=== PATIENT | female | born 1975 | race Caucasian/White ===

== ENCOUNTER 2022-03-15 11:45 | Emergency (ER) | payer OTHER, BC, SELFPAY ==
[2022-03-15] VITALS (10 sets, daily range): BP systolic 136–160; BP diastolic 85–98; PULSE 74; RESP 18; TEMP 36.6; O2SAT 97–100
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
[2022-03-15] MEDS: KETOROLAC 30 MG/ML VIAL (*BKC) IM (14:00)
== END 2022-03-15 14:10 | disposition home or self-care (01) ==
PROVIDERS: Emergency Provider Emergency Medicine
DX: S16.1XXA Strain of muscle, fascia and tendon at neck level, initial encounter (principal); V49.40XA Driver injured in collision with unspecified motor vehicles in traffic accident, initial encounter; M47.812 Spondylosis without myelopathy or radiculopathy, cervical region; M47.814 Spondylosis without myelopathy or radiculopathy, thoracic region
CPT/HCPCS: 72125; 72128; 96372; 99284; J1885

== ENCOUNTER 2022-04-03 18:58 | Emergency (ER) | payer BC, OTHER, SELFPAY ==
--- NOTE | ~2022-04-03 | XR_ITS ---
EXAMINATION: XR chest 2V DATE: 04/03/2022 19:22 INDICATION: Chest pain TECHNIQUE: PA and lateral views of the chest were obtained. COMPARISON: None FINDINGS: Mild left basilar atelectasis/scarring. No other airspace opacities, pulmonary edema, pleural effusio n or pneumothorax. Cardiomediastinal silhouette is normal. 25 degrees upper thoracic levoscoliosis an d 30 degrees mid to lower thoracic dextroscoliosis with severe spondylosis. IMPRESSION: 1. Mild left basilar atelectasis/scarring. No acute cardiopulmonary disease. 2. Moderate S-shaped thoracic scoliosis with severe spondylosis. Reviewed, dictated and finalized at location A.
--- NOTE | 2022-04-03 18:59 | ECG_ITS ---
Measurements Intervals [place] Rate: 87 P: 45 CA: 140 QRS: 2 QRSD: 86 T: 8 QT: 335 QTc: 405 Interpretive Statements SINUS RHYTHM BORDERLINE T WAVE ABNORMALITY- INFERIOR LEADS BORDERLINE ECG NO PREVIOUS ECG AVAILABLE FOR COMPARISON Electronically Signed On 04-03-2022 21:13:54 CDT by Markell Walton D.O.
[2022-04-03 19:00] VITALS: BP 178/106; PULSE 95; RESP 18; TEMP 36.5; O2SAT 100
[2022-04-03 19:09] VITALS: BP 155/90
[2022-04-03 19:26] LABS: Basophils Percent Auto 0.3 % (0.2-1.2); Eosinophils Percent Auto 0.2 % (0-4.4); Hematocrit 39.8 % (37.0-47.0); Hemoglobin 12.7 g/dL (12.0-15.0); Immature Granulocyte Absolute 0.06 K/mm3 (0.00-0.031); Immature Granulocyte Percent A 0.5 % (0-0.5); Lymphocytes Absolute Auto 1.19 K/mm3 (0.9-3.2); Mean Corpuscular HGB Conc 31.9 g/dl (32-36); Mean Corpuscular Hemoglobin 29.3 pg (26-34); Mean Corpuscular Volume 91.7 fl (80-100); Mean Platelet Volume 9.7 fl (7.4-10.4); Monocytes Absolute Auto 0.7 K/mm3 (0.1-0.6); Monocytes Percent Auto 5.4 % (2.6-8.5); Neutrophils Absolute Auto 11.2 K/mm3 (1.3-6.7); Neutrophils Percent Auto 84.6 % (45.5-73.1); Platelet Count Result 244 k/mm3 (150-375); Red Blood Count 4.34 M/mm3 (4.2-5.4); Red Cell Distribution Width 13.3 % (11.5-14.5); White Blood Count 13.2 K/mm3 (4.5-10.0)
[2022-04-03 19:41] LABS: Alanine Aminotransferase 25 U/L (6-35); Albumin Level 4.7 g/dL (3.5-5.1); Alkaline Phosphatase 54 U/L (38-126); Anion Gap 11 mmol/L (8-16); Aspartate Amino Transferase 28 U/L (14-36); Bilirubin,Total 0.3 mg/dL (0.2-1.3); Blood Urea Nitrogen 21 mg/dL (7-17); Calcium 9.6 mg/dL (8.4-10.2); Carbon Dioxide 21 mmol/L (22-30); Chloride 108 mmol/L (98-107); Estimated CRCL calculation 95 ml/min; Estimated Glomerular Filt Rate > 60; Glucose 105 mg/dL (65-110); Lipase 121 U/L (23-300); Potassium 4.1 mmol/L (3.4-5.0); Sodium 140 mmol/L (137-145)
[2022-04-03 19:42] LABS: Prothrombin Time 12.9 Seconds (11.1-14.7)
[2022-04-03 19:43] LABS: Partial Thromboplastin Time 32.1 SECONDS (22.3-36.8)
[2022-04-03 19:53] LABS: Troponin I < 0.012 ng/mL (0.000-0.034)
[2022-04-03] MEDS: KETOROLAC 30 MG/ML VIAL (*BKC) IV PUSH (21:41)
[2022-04-03 22:32] LABS: Troponin I < 0.012 ng/mL (0.000-0.034)
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
[2022-04-03 23:45] VITALS: BP 137/78; PULSE 77; RESP 14; O2SAT 100
[2022-04-03 23:49] VITALS: PULSE 82
== END 2022-04-03 23:51 | disposition home or self-care (01) ==
PROVIDERS: Emergency Medicine; Emergency Provider Emergency Medicine
DX: R07.9 Chest pain, unspecified (principal); R94.31 Abnormal electrocardiogram [ECG] [EKG]; M47.814 Spondylosis without myelopathy or radiculopathy, thoracic region
CPT/HCPCS: 36415; 71046; 80053; 83690; 84484; 85025; 85610; 85730; 93005; 96374; 99284; J1885

== ENCOUNTER 2023-04-28 16:50 | Emergency (ER) | payer BC, SELFPAY ==
--- NOTE | ~2023-04-28 | US_ITS ---
EXAMINATION: US venous doppler LE RT DATE: 04/28/2023 17:53 INDICATION: Right lower limb pain. TECHNIQUE: Grayscale ultrasound images without and with compression and Doppler ultrasound images of the right lower extremity veins were obtained. COMPARISON: None. FINDINGS: The visualized portions of right common femoral vein, profunda (deep) femoral vein, femoral vein, pop liteal vein, peroneal veins, posterior tibial veins, and greater saphenous vein outflow are patent. IMPRESSION: 1. No deep venous thrombosis. Reviewed, dictated and finalized at location E.
[2023-04-28 16:52] VITALS: BP 145/82; PULSE 81; RESP 17; TEMP 36.8; O2SAT 100
--- NOTE | 2023-04-28 17:52 | ED.LOWEXIN ---
HPI - Extremity Injury (Lower) General Chief Complaint: Extremity Injury, Lower Stated Complaint: right calf pain Time Seen by Provider: 04/28/23 17:11 Source: patient Mode of arrival: ambulatory Limitations: no limitations History of Present Illness HPI Narrative: Patient is a 47 y/o female who presents to the ED with c/o R lower extremity pain. Patient reports she developed pain in her right calf and posterior knee last night around 10 PM. She states pain was present mostly throughout the night. She describes it as a constant aching. She tried taking ibuprofen without much improvement. Patient notes a history of superficial thrombophlebitis in December of this year. She contacted her doctor about this pain today and was referred to the ED to rule out a DVT. Patient denies previous history of DVT/PE. Denies swelling of right lower leg. Denies numbness. Denies redness, warmth, wounds. She is able to ambulate, just states it feels uncomfortable. Denies any recent injury, strenuous activity, prolonged exercise. Related Data Allergies Allergy/AdvReac Type Severity Reaction Status Date / Time codeine AdvReac Mild Vomiting Verified 04/28/23 17:13 Review of Systems Review of Systems: CONSTITUTIONAL: Denies fever, chills, or sweats. CARDIOVASCULAR: Denies chest pain, palpitations, or edema. RESPIRATORY: Denies dyspnea. SKIN: Denies swelling. MUSCULOSKELETAL: See HPI. NEUROLOGIC: Denies headache, numbness, or weakness. All systems reviewed & are unremarkable except as noted in HPI and below PMFSH Past Medical History Medical History (Updated 04/28/23 @ 18:23 by Ashley Laguna PA-C) Healthy female adult Surgical History Surgical History (Updated 04/03/22 @ 23:36 by Oc Hays MD) No history of previous surgery Social History Social History (Updated 04/03/22 @ 23:36 by Oc Hays MD) Smoking status: Never smoker Exam Narrative: GENERAL: Well appearing, obese with BMI 32.2, non-toxic, in no acute distress. HEAD: Normocephalic, atraumatic. NECK: Supple. No adenopathy, no masses. RESPIRATORY: Airway patent, respirations nonlabored. Clear to auscultation bilaterally, no rales, rhonchi, wheezing. CARDIOVASCULAR: Regular rate and rhythm without murmurs, rubs, or gallops. Pedal pulses 2+ and equal bilaterally. MUSCULOSKELETAL: Moves all extremities. Strength/ROM intact without gross deformities. No edema throughout lower extremities. Mild tenderness in right posterior calf and popliteal region. No palpable Chu's cyst. No wounds, erythema to right lower extremity. Sensation intact. Good capillary refill to all toes. Full range of motion of right lower extremity. SKIN: Warm, dry, normal color. No rashes. NEURO: A&O X3. Speech clear. Cranial nerves II-XII grossly intact. Steady gait. No ataxic movements. PSYCHIATRIC: Appropriate mood and affect. Normal interaction. Course Vital Signs Vital signs: Vital Signs Temperature 98.2 F 04/28/23 16:52 Pulse Rate 81 04/28/23 16:52 Respiratory Rate 17 04/28/23 16:52 Blood Pressure 145/82 H 04/28/23 16:52 Pulse Oximetry 100 04/28/23 16:52 Oxygen Delivery Room Air 04/28/23 16:52 Temperature 98.2 F 04/28/23 16:52 Pulse Rate 81 04/28/23 16:52 Respiratory Rate 17 04/28/23 16:52 Blood Pressure 145/82 H 04/28/23 16:52 Pulse Oximetry 100 04/28/23 16:52 Oxygen Delivery Room Air 04/28/23 16:52 MDM - Extremity Injury (Lower) MDM Narrative Medical decision making narrative: Patient presented to ED with right lower extremity pain x1 day, sent to rule out DVT. History of superficial thrombophlebitis. Vitals stable upon arrival. Exam unremarkable. No evidence of swelling, cellulitis, Chu's cyst. No joint tenderness or injury. No evidence of compartment syndrome. No evidence of neurovascular compromise. No CP/SOB. Venous Doppler US negative for deep/superficial clots. Patient updated on imaging findings
[2023-04-28 18:33] VITALS: RESP 20; O2SAT 100
== END 2023-04-28 18:33 | disposition home or self-care (01) ==
PROVIDERS: Emergency Provider Physician Assistant
DX: M79.661 Pain in right lower leg (principal)
CPT/HCPCS: 93971; 99284

== ENCOUNTER 2025-05-21 00:05 | Emergency (ER) | payer OTHER, SELFPAY ==
--- NOTE | ~2025-05-21 | CT_ITS ---
CT abdomen pelvis w con Clinical History: epigastric abd pain, pancreatitis vs cholecystitis . Comparison: None Technique: Axial images lung bases to symphysis pubis 100 mL Omnipaque 350 Coronal, sagittal reformats CT images acquired with automatic exposure control for dose reduction DLP: 483 mGy-cm Findings: Lung bases: Clear. Visualized heart and pericardium: Unremarkable. Liver: Unremarkable. Gallbladder: Unremarkable. Spleen: Unremarkable. Pancreas: Unremarkable. Adrenal glands: Unremarkable. Kidneys: Right kidney- No hydronephrosis. No renal stones. Left kidney- No hydronephrosis. No renal stones. Distal esophagus/stomach: Apparent gastric antral wall thickening likely merely underdistention and/or contraction. Small bowel loops: Normal caliber and wall thickness. Colon: Diverticula. Normal caliber and wall thickness. Normal RLQ appendix. Nodes: No enlarged nodes. Peritoneum: No ascites. No free air. Urinary bladder: Unremarkable. Uterus: Nabothian cyst versus less likely lower uterine segment fibroid. Adnexa: No masses Bones: No acute bony abnormality. Soft tissues: Small umbilical hernia with fat. Aorta: No aneurysm or dissection. IVC: Unremarkable. Main portal vein/SMV/splenic vein: Patent. IMPRESSION: 1. No acute findings. Reviewed, dictated and finalized at location R. IMPRESSION: 1. No acute findings.
--- OUTSIDE RECORDS SUMMARY | 2025-05-21 00:07 | XMS_ITS | Encounter Summary ---
Author Organization [facility] Address [facility] [place] [address] Care Team Providers Care Business Administration Teacher Name Role Phone Owen Farias MD Primary Care Provider [phone] Michelle Torres Primary Care Provider [phone] Encounter Details Date Type Department Care Team (Latest Contact Info) Description 08/27/2023 MyChart Message Enc [facility] - [facility] [address] [facility], [address] [place] [phone] Jade Matias, [place] [address] [facility] [address] [place], [place] [id number] Itchy red stitches and numbness on neck/ jaw Social History Tobacco Use Types Packs/Day Years Used Date Smoking Tobacco: Never Smokeless Tobacco: Never Alcohol Use Standard Drinks/Week Comments Never 0 (1 standard drink = 0.6 oz pur e alcohol) [facility] Utilities Answer Date Recorded In the past 12 months has e [employer], gas, oil, or water [employer] threatened to shut off services in your home? No 07/29/2023 Humiliation, Afraid, Rape, and Kick questionnair e Answer Date Recorded Within the last year, have y ou been afraid of your partner or ex-partner? No 07/29/2023 Within the last year, have y ou been humiliated or emotionally abused in other ways by your partner or ex-partner? No Within the last year, have y ou been kicked, hit, slapped, or otherwise physically hurt by your partner or ex-partner? No 07/29/2023 Within the last year, have y ou been raped or forced to have any kind of sexual activity by your partner or ex-partner? No 07/29/2023 Overall Financial Resource Strain (CARDIA) Answe r Date Recorded How hard is it for you to pa y for the very basics like food, housing, medical care, and heating? Not hard at all 07/29/2023 PHQ-2 Answer Date Recorded Patient Health Questionnaire-2 Score 0 11/11/2022 [facility] - Occupational Stress Questionnaire Answer Date Recorded Do you feel stress - tense, restless, nervous, or anxious, or unable to sleep at night because your mind is troubled all the time - these days? Not at all 07/29/2023 Exercise Vital Sign Answer Date Recorde d On average, how many days pe r week do you engage in moderate to strenuous exercise (like a brisk walk)? 0 days 07/29/2023 On average, how many minutes do you engage in exercise at this level? 0 min 07/29/2023 Hunger Vital Sign Answer Date Recorded Within the past 12 months, y ou worried that your food would run out before you got the money to buy more. Never true 07/29/19 24 Within the past 12 months, t he food you bought just didn't last and you didn't have money to get more. Never true 07/29/2023 PRAPARE - Transportation Answer Date Re corded In the past 12 months, has l ack of transportation kept you from medical appointments or from getting medications? No 09/2023 In the past 12 months, has l ack of transportation kept you from meetings, work, or from getting things needed for daily living? No 07/29/2023 Housing Stability Vital Sign Answer Sandeep e Recorded In the last 12 months, was t here a time when you were not able to pay the mortgage or rent on time? No 07/29/2023 In the last 12 months, how many places have you lived? 1 07/29/2023 In the last 12 months, was t here a time when you did not have a steady place to sleep or slept in a fpc (including now)? 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 Answer Date of Assessment Author Status No 07/29/2023 5:00 PM Keri Yap RN Active * Do you have serious difficulty walking or climbing stairs? Answer Date of Assessment Author Status No 07/29/2023 5:00 PM Keri Yap RN Active * Do you have difficulty dressing or bathing? Answer Date of Assessment Author Status No 07/29/2023 5:00 PM Keri Yap RN Active * Because of a physical, mental, or emotional condition, do you have difficulty doing errands alone such as visiting a doctor's office or shopping? Answer Date of Assessment Author Status No 07/29/2023 5:00 PM Keri Yap RN Active documented as of this encounter Mental Status * Because of a physical, mental, or emotional condition, do you have serious difficulty concentrating, remembering, or making decisions? Answer Entry Date Author Status No 07/29/2023 5:00 PM Keri Yap RN Active documented in this encounter Progress Notes * Jade Matias APRN - 08/28/2023 2:59 PM CST She may have a spiting stitch. Have her come in Thursday for assessment. The numbness is normal and so is the swallowing. It will take time. CUTTER LATHE OPERATOR * Rosaura Winters MA - 08/28/2023 8:00 AM CST Forwarding to Jade CUTTER LATHE OPERATOR documented in this encounter Plan of Treatment Not on file documented as of this encounter Goals Goal Patient Goal Type Associated Problems Recent Progress Patient-Stated? Author Health - patient able to perform ADLs independently Lifestyle No Cassandra Marie, BROOCH MAKER NOVELTY documented as of this encounter Visit Diagnoses Not on filedocumented in this encounter Additional Health Concerns Infection Onset Date Last Indicated Resolved Time COVID-19 Rule Out 07/11/2024 07/11/2024 07/11/2024 10:45 AM RING CUTTER LATHE OPERATOR documented as of this encounter Care Teams Business Administration Teacher Relationship Specialty Start Date End Date Owen Farias MD [facility] [place] [address] PCP - General FAMILY PRACTICE 11/08/21 09/25/24 Michelle Torres APNP [address] [place] [address] PCP - General NURSE PRACTITIONER 09/26/24 documented as of this encounter
--- OUTSIDE RECORDS SUMMARY | 2025-05-21 00:07 | XMS_ITS | Encounter Summary ---
Author Organization [facility] Address [address] [place] [address] Care Team Providers Care Potato Seed Cutter Name Role Phone Owen Farias MD Primary Care Provider [phone] Michelle Torres Primary Care Provider [phone] Encounter Details Date Type Department Care Team (Late st Contact Info) Description 08/13/2024 MyChart Message Enc [facility] Medical Group Multispecialty Care - [facility] [address] [facility], [address] [place] [phone] Parth Olson MD [address] [place], [place] [id number] CT scan has been completed Social History Tobacco Use Types Packs/Day Years Used Date Smoking Tobacco: Never Smokeless Tobacco: Never Comments:na Alcohol Use Standard Drinks/Week Comments Never 0 (1 standard drink = 0.6 oz pur e alcohol) [facility] Utilities Answer Date Recorded In the past 12 months has e electric, gas, oil, or water company threatened to shut off services in your [...] Date Recorded Patient Health Questionnaire-2 Score 0 01/01/2024 [facility] Occupat ional [facility] - Occupational Stress Questionnaire Answer Date Recorded [...] place to sleep or slept in a chcf (including now)? No 07/29/2023 Comments No Sex and Gender Information Value Date Recorded Sex Assigned at Female 08/13/2024 11:18 AM MECHANIC INSULATOR Legal Sex Female 1:57 AM MECHANIC INSULATOR Gender Identity Female 09/13/2024 7:03 AM MECHANIC INSULATOR Sexual Orientation Not on file documented as [...] documented in this encounter Progress Notes * Marya Miller LPN - 08/15/2024 3:25 PM CST Called patient and passed this along. She VU. ANIC INSULATOR documented in this encounter Plan of Treatment Not on file documented as of this encounter Goals Goal Patient Goal Type Associated Problems Recent Progress Patient-Stated? Author Health - patient able to perform ADLs independently Lifestyle No Cassandra Marie, APPEALS ASSISTANT documented as of this encounter Visit Diagnoses Not on filedocumented in this encounter Care Teams Potato Seed Cutter Relationship Specialty Start Date End Date Owen Farias MD [address] [place] [address] PCP - General FAMILY PRACTICE 11/08/21 09/25/24 Michelle Torres APNP [address] [place] [address] PCP - General NURSE PRACTITIONER 09/26/24 documented as of this encounter
--- OUTSIDE RECORDS SUMMARY | 2025-05-21 00:07 | XMS_ITS | Encounter Summary ---
Author Organization [facility] Address [address] [place] [address] Care Team Providers Care Company Truck Driver Name Role Phone Owen Farias MD Primary Care Provider [phone] Michelle Torres Primary Care Provider Encounter Details Date Type Department Care Team (Latest Contact Info) Description 12/28/[address] [facility] Medical Group Multispecialty Care - [facility] [address] [facility], [address] [place] [phone] Jade Matias APRN [address] [facility] [address] [place] [address] Order for xray before appointment this Thursday Social History Tobacco Use Types Packs/Day Years Used Date Smoking Tobacco: Never Smokeless Tobacco: Never Alcohol Use Standard Drinks/Week Comments Never 0 (1 standard drink = 0.6 oz pur e alcohol) [facility] Utilities Answer Date Recorded In the [...] Recorded Patient Health Questionnaire-2 Score 0 01/01/2024 [facility] of Occupat ional Health - Occupational Stress [...] place to sleep or slept in a half-way (including now)? No 07/29/2023 Comments No Sex and Gender Information Value Date Recorded Sex Assigned at Female 08/13/2024 11:18 AM WAREHOUSE ASSISTANT Legal Sex Female 1:57 AM WAREHOUSE ASSISTANT Gender Identity Female 09/13/2024 7:03 AM WAREHOUSE ASSISTANT Sexual Orientation Not on file documented as [...] Yap RN Active documented in this encounter Plan of Treatment Not on file documented as of this encounter Goals Goal Patient Goal Type Associated Problems Recent Progress Patient-Stated? Author Health - patient able to perform ADLs independently Lifestyle No Cassandra Marie, ADMINISTRATIVE ASSISTANT OFFICE MANAGER documented as of this encounter Visit Diagnoses Not on filedocumented in this encounter Additional Health Concerns Infection Onset Date Last Indicated Resolved Time COVID-19 Rule Out 07/11/2024 07/11/2024 07/11/2024 10:45 AM WAREHOUSE ASSISTANT documented as of this encounter Care Teams Company Truck Driver Relationship Specialty Start Date End Date Owen Farias MD [address] [place] [address] PCP - General FAMILY PRACTICE 11/08/21 09/25/24 Michelle Torres APNP [address] [place] [address] PCP - General NURSE PRACTITIONER 09/26/24 documented as of this encounter
--- OUTSIDE RECORDS SUMMARY | 2025-05-21 00:07 | XMS_ITS | Encounter Summary ---
Author Organization [facility] Address [address] [place] [address] Care Team Providers Care Spooler Name Role Phone Owen Farias MD Primary Care Provider [phone] Michelle Torres Primary Care Provider [phone] Reason for Referral * Speech Therapy (Routine) - Closed Specialty Diagnoses / Procedures Referred By Cipriano lbancas Referred To Contact SPEECH THERAPY / [facility] Speech Therapy Diagnoses S/P cervical spinal fusion Dysphonia Procedures OFFICE/OUTPATIENT NEW LOW MDM 30-44 MINUTES OFFICE/OUTPT VISIT,NEW,LEVL IV OFFICE/OUTPT VISIT,NEW,LEVL V OFFICE/OUTPT VISIT,EST,LEVL III OFFICE/OUTPT VISIT,EST,LEVL IV OFFICE/OUTPT VISIT,EST,LEVL V Jade Matias, CATARINO [address] [facility] [address] [place] [address] Phone: tel: fax: [facility] [place] [address] Phone: tel: fax: Referral ID Status Reason Start Date Expiration Date V isits Requested Visits Authorized [id number] Closed Specialty Services 09/17/2023 10/16/2024 6 6 Scheduling Instructions ELIS FLORES Speech changes. Expected with surgery but patient would like evaluation. TER STITCHER Encounter Details Date Type Department Care Team (Latest Contact Info) Description 09/14/2023 Whatserhart Message Enc [facility] Medical Group Multispecialty Care - [facility] [address] [facility], [address] [place] [address] Jade Matias APRN 3 [facility] [address] [place] [address] Requesting possible referral for speech therapy Social History Tobacco Use Types Packs/Day Years Used Date Smoking Tobacco: Never Smokeless Tobacco: Never Alcohol Use Standard Drinks/Week Comments Never 0 (1 standard drink = 0.6 oz pur e alcohol) [facility] Utilities Answer Date Recorded In the past 12 months has e [employer], gas, oil, or water [employer] threatened to shut off services in your [...] Recorded Patient Health Questionnaire-2 Score 0 11/11/2022 [facility] of Occupat ional Health - Occupational Stress [...] place to sleep or slept in a nursing home (including now)? No 07/29/2023 Comments No Sex and Gender Information Value Date Recorded Sex Assigned at Female 08/13/2024 11:18 AM COUNTER STITCHER Legal Sex Female 1:57 AM COUNTER STITCHER Gender Identity Female 09/13/2024 7:03 AM COUNTER STITCHER Sexual Orientation Not on file documented as [...] Progress Notes * Jade Matias APRN - 09/17/2023 10:51 AM CST Speech referral made today. TER STITCHER * Jade Mtaias APRN - 09/17/2023 10:50 AM Maggi Miller LPN 09/15/2023 9:51 AM COUNTER STITCHER Forwarding to Jade- this is patient's response ----- Message ----- From: Michelle Menard Sent: 09/15/2023 8:38 AM COUNTER STITCHER To: Jade Khan Nurse Subject: Requesting possible referral for speech ther* Good morning! Please pass the message to Jade that I would like a referral. After having the conversation with PT, and anticipating returning to work in a co uple of weeks I???d rather get this setup instead of trying to maneuver it into my schedule AFTER the fact. I???m trying to be proactive in my recovery and doing everything I can to get back to as normal as I can be. Please tell her I said thank you!! TER STITCHER documented in this encounter Plan of Treatment Scheduled Referrals Name Type Priority Associated Diagnoses Orde r Schedule Ambulatory referral to Speech Therapy Referral Routine S/P cervical spinal fusion Dysphonia Ordered: 09/17/2023 documented as of this encounter Goals Goal Patient Goal Type Associated Problems Recent Progress Patient-Stated? Author Health - patient able to perform ADLs independently Lifestyle No Cassandra Marie, WATCH TRAIN ASSEMBLER documented as of this encounter Visit Diagnoses Diagnosis S/P cervical spinal fusion- Primary Arthrodesis status Dysphonia documented in this encounter Additional Health Concerns Infection Onset Date Last Indicated Resolved Time COVID-19 Rule Out 07/11/2024 07/11/2024 07/11/2024 10:45 AM COUNTER STITCHER documented as of this encounter Care Teams Spooler Relationship Specialty Start Date End Date Owen Farias MD [address] [place] [address] PCP - General FAMILY PRACTICE 11/08/21 09/25/24 Michelle Torres APNP [address] [place] [address] PCP - General NURSE PRACTITIONER 09/26/24 documented as of this encounter
--- OUTSIDE RECORDS SUMMARY | 2025-05-21 00:07 | XMS_ITS | Clinical Summary ---
Author Organization [facility] Address [facility] [place] [address] Care Team Providers Care Pointing Machine Operator Name Role Phone Masha Oconnell RAHEEM Primary Care Provider [phone] Allergies Active Allergy Reactions Criticality Noted Date Comments Codeine Vomiting Low 06/03/2021 Medications coenzyme Q-10 (CO Q-10) 100 MG capsule Take 1 capsule (100 mg total) by mouth daily. Active Multiple Vitamin (MULTIVITAMIN ADULT OR) Take 1 tablet by mouth daily. Active calcium carbonate-vitamin D (OSCAL + D) 500-5 MG-MCG Tab tablet Take 1 tablet by mouth daily. Active vitamin D3, cholecalciferol, 125 mcg capsule Take 1 capsule (125 mcg total) by mouth daily. Active vitamin C (ASCORBIC ACID) 250 MG tablet Take 1 tablet (250 mg total) by mouth daily. Active ELDERBERRY OR Take 1 tablet by mouth daily. Active fexofenadine (YUDI) 180 MG tablet Take 1 tablet (180 mg total) by mouth daily. Active terbinafine (LAMISIL) 250 MG tablet Take 1 tablet (250 mg total) by mouth daily. 5 Active hydroCHLOROthiazid e (MICROZIDE) 12.5 MG capsuleIndications :Primary hypertension Take 1 capsule (12.5 mg total) by mouth every morning. 90 capsule 3 5 Active ondansetron (ZOFRAN-ODT) 4 MG disintegrating tabletIndications: Acute gastric ulcer without hemorrhage or perforation,Nausea Take 1 tablet (4 mg total) by mouth every 8 (eight) hours as needed for Nausea. 20 tablet 2 5 Active sucralfate (CARAFATE) 1 G tabletIndications: Chronic gastric ulcer without hemorrhage and without perforation TAKE 1 TABLET(1 GRAM) BY MOUTH FOUR TIMES DAILY BEFORE MEALS AND AT NIGHT 120 tablet 5 Active omeprazole (PRILOSEC) 40 MG capsuleIndications :Chronic gastric ulcer without hemorrhage and without perforation TAKE 1 CAPSULE(40 MG) BY MOUTH DAILY 90 capsule 1 5 Active ZEPBOUND 2.5 MG/0.5ML injectionIndicatio ns:Class 2 obesity due to excess calories without serious comorbidity with body mass index (BMI) of 36.0 to 36.9 in adult INJECT 0.5 ML (2.5 MG) UNDER THE SKIN ONCE WEEKLY (0.5ML= 50 UNITS) 2 mL 5 Active predniSONE (DELTASONE) 10 mg tabletIndications: Upper respiratory tract infection, unspecified type Start 60 mg today and decrease by one tablet each day until complete. 21 tablet 5 Active azithromycin (ZITHROMAX Z-REMI) 250 MG tabletIndications: Upper respiratory tract infection, unspecified type Take 2 tablets by mouth on day one then 1 daily for four days. 6 tablet 5 04/30/20 25 Active Problems Problem Noted Date Diagnosed Date Localized osteoarthritis of right knee 4 Myofascial neck pain 08/12/2023 S/P cervical spinal fusion 07/29/2023 Myelopathy 01/30/2023 Resolved Problems Problem Noted Date Diagnosed Date Resolved Date Myofascial pain 11/11/2022 08/12/2023 Foraminal stenosis of cervical region 11/11/2022 08/12/2023 Cervical radiculopathy 11/11/202208/12 Other cervical disc degenera tion, unspecified cervical region 11/11/2022 08/12/2023 Spinal stenosis of cervical region 11/11/2022 08/12/2023 Spondylolisthesis of cervical region 11/11/2022 08/12/2023 Encounters Date Type Department Care Team Description 04/25/2025 MyChart Message Enc [facility] Medical Group Family and Sports Medicine - [place] [address] [place] [address] Masha Oconnell, RAHEEM Upper respiratory issues (Like Rubio). from Last 3 Months Immunizations Immunization Administration Dates Next Due Influenza (Generic) 05/06/2024 Family History Medical History Relation Comments Hypertension Father Stroke Father Hypertension Mother Relation Status Comments Father Alive Mother Alive Social History Tobacco Use Types Packs/Day Years Used Date Smoking Tobacco: Never Smokeless Tobacco: Never Tobacco Cessation:Counseling Given: No Comments:na Alcohol Use Standard Drinks/Week Comments Never 0 (1 standard drink = 0.6 oz pur e alcohol) [facility] Utilities Answer Date Recorded In the [...] Date Recorded Patient Health Questionnaire-2 Score 0 09/26/2024 [facility] of Occupat ional Health - Occupational Stress [...] Sex Assigned at Female 08/13/2024 11:18 AM E BUSINESS SPECIALIST Legal Sex Female 1:57 AM E BUSINESS SPECIALIST Gender Identity Female 09/13/2024 7:03 AM E BUSINESS SPECIALIST Sexual Orientation Not on file Last Filed Vital Signs Vital Sign Reading Time Taken Comments Blood Pressure 135/85 02/05/2025 8:42 AM CDT Pulse 83 02/05/2025 8:42 AM CDT Temperature 36.2 C (97.1 F) 02/05/2025 7:17 AM CDT Respiratory Rate 15 02/05/2025 8:42 AM CDT Oxygen Saturation 100% 02/05/2025 8:42 AM CDT Inhaled Oxygen Concentration - - Weight 88 kg (194 lb) 02/05/2025 7:17 AM CDT Height 167.6 cm (5' 6) 02/05/2025 7:17 AM CDT Body Mass Index 31.31 02/05/2025 7:17 AM CDT Plan of Treatment Health Maintenance Due Date Last Done Comments Cervical Cancer Screening Pa p Smear (Age 30 to 64) Every 3 Years 1974 Hepatitis C 1992 DTaP, Tdap and Td Vaccines ( 1 - Tdap) 1993 Hepatitis B Vaccines (1 of 3 - 19+ 3-dose series) 1993 Pneumococcal Vaccine: 50+ Years (1 of 1 - PCV) 2024 Zoster Vaccines (1 of 2) 2024 COVID-19 Vaccine (1 - 2024-2 6 season) 2025 Influenza Adult (#1) 2025 05/06/2024 Annual Physical 09/26/2025 09/26/2024 Mammogram Screening 10/18/2026 10/18/2024 Colorectal Cancer Screening FIT-DNA (3 Years) 10/02/2027 10/01/2024, 10/01/2024 Cervical Cancer Screening Pa p with HPV Testing (Age 30 to 64) Every 5 Years 11/14/2027 11/13/2022, 11/13/2022 Cervical Cancer Screening wi th HPV 11/14/2027 PHQ-2 (Physician [place]) Completed 09/26/2024 Hepatitis A Vaccines Aged Out No long er eligible based on patient's age to complete this topic Meningococcal B Vaccine Aged Out No l onger eligible based on patient's age to complete this topic Meningococcal Vaccine Aged Out No yessi jaycob eligible based on patient's age to complete this topic RSV Immunizations Under 20 Months Aged Out No longer eligible b ased on patient's age to complete this topic Goals Goal Patient Goal Type Associated Problems Recent Progress Patient-Stated? Author Health - patient able to perform ADLs independently Lifestyle No Cassandra Marie, SHEETER HELPERlockstitch sleeve setter Devices Implanted Type Area Hadoop Application Developer Device Identifier Shelf Expiration Date Model / Serial / Lot Bio 4 Bone Matrix Implanted:Qt y: 1 on 07/29/2023 by Parth Olson MD at [facility] Bone N/A: Spine Cervical [employer] - DIV ARAB[employer]LLA HEATH 03/22/2025 [id number] / [place] Interbody System Cervical Interbody [id number], [id number] Implanted:Qt y: 1 on 07/29/2023 by Parth Olson MD at [facility] Spine Components N/A: Spine Cervical [employer] - DIV ARAB[employer]LLA HEATH [id number] 02/01/2028 / / [id number] [place] Cervical Interbody Implanted:Qt y: 1 on 07/29/2023 by Parth Olson MD at [facility] N/A: Spine Cervical [id number] 02/01/2028 [id number] / / [id number] Vst Screws Implanted:Qt y: 6 on 07/29/2023 by Parth Olson MD at [facility] N/A: Spine Cervical [id number] / / Plate Implanted:Qt y: 1 on 07/29/2023 by Parth Olson MD at [facility] N/A: Spine Cervical [id number] 40V / / Explanted Type Area Hadoop Application Developer Device Identifier Shelf Expiration Date Model / Serial / Lot Distration Pin 12mm - [id number] Explanted:Qty: 1 on 07/29/2023 by Parth Olson MD at [facility] Pin N/A: Spine Cervical [employer] DP-12-TB / / Distration Pin 12mm - [id number] Explanted:Qty: 1 on 07/29/2023 by Parth Olson MD at [facility] Pin N/A: Spine Cervical [employer] DP-12-TB / / Procedures Procedure Name Priority Date/Time Associated Diagnosis Comments MG SCREENING W ANDREAS KRYSTYNA DIGI Routine 10/18/2024 4:39 PM CDT Encounter for screening mammogram for malignant neoplasm of breast COLOGUARD (EXACT SCIENCE) Routine 10/01/2024 8:30 AM E BUSINESS SPECIALIST Screening for colon cancer OUTSIDE CYTOPATH CERV/VAG INTERPRET (PAP) 11/13/2022 from Last 3 Months or Most Recently Relevant to Health Maintenance Results * MG SCREENING W ANDREAS KRYSTYNA DIGI (10/18/2024 4:39 PM CDT) Anatomical Region Laterality Modality Breast Bilateral Mammography 10/20/2024 3:01 PM CDT Impressions 10/20/2024 3:08 PM CDT ===== IMPRESSION: ===== 1. No mammographic evidence of malignancy. Assessment: ACR BI-RADS 2 - BENIGN FINDING(S) Recommendation: 1:Routine Screening Bilateral Comments: Ordered By: MASHA OCONNELL Interpreted By: Chico Burnette, 10/20/2024 3:01 PM Narrative 10/20/2024 3:08 PM CDT [place] [id number] EXAMINATION: Digital bilateral screening mammogram with 3-D tomosynthesis EXAM DATE/TIME: 10/18/2024 4:16 PM REASON FOR EXAM: screening Benign left breast biopsy in 2006. COMPARISON: Reestablish baseline. Technique: Digital screening mammography of both breasts was performed in addition to 3-D Tomosynthesis technique. This study was read with the assistance of a computer-aided detection system. Tissue density: There are scattered areas of fibroglandular density. Findings: There is no focal asymmetry, dominant mass lesion, area of skin thickening, or cluster of suspicious appearing calcifications in either breast to suggest malignancy. Benign asymmetric tissue in the upper outer quadrant of the left breast. Masha MACIEL MAMMO Final Result * COLOGUARD (mInfo SCIENCE) (10/01/2024 8:30 AM E BUSINESS SPECIALIST) COLOGUARD RESULT Negative Negative [facility] (CLIA #:[id number]) Comment: NEGATIVE TEST RESULT. A negative Cologuard result indicates a low likelihood that a colorectal cancer (CRC) or advanced adenoma (adenomatous polyps with more advanced pre-malignant features) is present. The chance that a person with a negative Cologuard test has a colorectal cancer is less than 1 in 1500 (negative predictive value >99.9%) or has an advanced adenoma is less than 5.3% (negative predictive value 94.7%). These data are based on a prospective cross-sectional study of 10,000 individuals at average risk for colorectal cancer who were screened with both Cologuard and colonoscopy. (Marlon Barber al, N Engl J Med 2014;370(14):4332-2581) The normal value (reference range) for this assay is negative. COLOGUARD RE-SCREENING RECOMMENDATION: Periodic colorectal cancer screening is an important part of preventive healthcare for asymptomatic individuals at average risk for colorectal cancer. Following a negative Cologuard result, the [place] Cancer Society and U.S. Multi-Society Task Force screening guidelines recommend a Cologuard re-screening interval of 3 years. References: [place] [employer] Society Guideline for Colorectal Cancer Screening: https://www.cancer.org/cancer/dhefa-cptqgr-mcofwo/paufyaytj-askgblcok-nwmrdjz/ac s-rec ommendations.html.; Gabe DK, Dany REDD, Toña ArredondoK, Colorectal Cancer Screening: Recommendations for Physicians and Patients from the U.S. Multi-Society Task Force on Colorectal Cancer Screening , Am J Gastroenterology 2017; 112:3762-2035. TEST DESCRIPTION: Composite algorithmic analysis of stool DNA-biomarkers with hemoglobin immunoassay. Quantitative values of individual biomarkers are not reportable and are not associated with individual biomarker result reference ranges. Cologuard is intended for colorectal cancer screening of adults of either sex, 45 years or older, who are at average-risk for colorectal cancer (CRC). Cologuard has been approved for use by the U.S. FDA. The performance of Cologuard was established in a cross sectional study of average-risk adults aged 50-84. Cologuard performance in patients ages 45 to 49 years was estimated by sub-group analysis of near-age groups. Colonoscopies performed for a positive result may find as the most clinically significant lesion: colorectal cancer [4.0%], advanced adenoma (including sessile serrated polyps greater than or equal to 1cm diameter) [20%] or non- advanced adenoma [31%]; or no colorectal neoplasia [45%]. These estimates are derived from a prospective cross-sectional screening study of 10,000 individuals at average risk for colorectal cancer who were screened with both Cologuard and colonoscopy. (Marlon Barber al, N Engl J Med 2014;370(14):7596-9273.) Cologuard may produce a false negative or false positive result (no colorectal cancer or precancerous polyp present at colonoscopy follow up). A negative Cologuard test result does not guarantee the absence of CRC or advanced adenoma (pre-cancer). The current Cologuard screening interval is every 3 years. ([place] Cancer Society and U.S. Multi-Society Task Force). Cologuard performance data in a 10,000 patient pivotal study using colonoscopy as the reference method can be accessed at the following location: www.Curate.Us.atHomestars/results. Additional description of the Cologuard test process, warnings and precautions can be found at www.cologuard.com. STOOL STOOL SPECIMEN / Unknown 10/01/2024 8:30 AM E BUSINESS SPECIALIST 10/04/2024 7:25 AM CDT Masha MACIEL BODY FLUIDS AND STOOLS ORDERAB LES Final Result [employer], [facility] [address] [place] [address], [employer] (CLIA #:[id number]) [address] [place] [address] * PAP SMEAR WITH HPV (11/13/2022) 11/13/2022 [facility] Scanned SCANNING Final Resu lt from Last 3 Months or Most Recently Relevant to Health Maintenance Insurance [employer] Advance Directives * Full Code (Latest Code Status on File) Date Activated Date Inactivated Comments 07/29/2023 5:46 PM 07/31/2023 8:08 PM Care Teams Pointing Machine Operator Relationship Specialty Start Date End Date Masha Oconnell APNP [address] [place] [address] PCP - General NURSE PRACTITIONER 09/26/24
--- OUTSIDE RECORDS SUMMARY | 2025-05-21 00:07 | XMS_ITS | Encounter Summary ---
Author Organization [facility] - [facility] Address [address] [place] [address] Care Team Providers Care Concrete Inspector Name Role Phone Owen Farias MD Primary Care Provider [phone] Michelle Torres Primary Care Provider [phone] Encounter Details Date Type Department Care Team (Late st Contact Info) Description 03/22/2024 MyChart Message Enc [facility] Medical Group Multispecialty Care - [facility] [address] [facility], [address] [place] [phone] Parth Olson MD [address] [place] [address] Xray order on gene Social History Tobacco Use Types Packs/Day Years Used Date Smoking Tobacco: Never Smokeless Tobacco: Never Alcohol Use Standard Drinks/Week Comments Never 0 (1 standard drink = 0.6 oz pur e alcohol) [facility] Utilities Answer Date Recorded In the past 12 months has e [employer], gas, oil, or water company threatened to [...] Recorded Patient Health Questionnaire-2 Score 0 01/01/2024 [facility]at [facility] - Occupational Stress Questionnaire Answer Date [...] place to sleep or slept in a retirement (including now)? No 07/29/2023 Comments No Sex and Gender Information Value Date Recorded Sex Assigned at Female 08/13/2024 11:18 AM MONUMENT CARVER Legal Sex Female 1:57 AM MONUMENT CARVER Gender Identity Female 09/13/2024 7:03 AM MONUMENT CARVER Sexual Orientation Not on file documented as [...] perform ADLs independently Lifestyle No Cassandra Marie, KEG WASHER documented as of this encounter Visit Diagnoses Not on filedocumented in this encounter Additional Health Concerns Infection Onset Date Last Indicated Resolved Time COVID-19 Rule Out 07/11/2024 07/11/2024 07/11/2024 10:45 AM MONUMENT CARVER documented as of this encounter Care Teams Concrete Inspector Relationship Specialty Start Date End Date Owen Farias MD [facility] [address] [place] [address] PCP - General FAMILY PRACTICE 11/08/21 09/25/24 Michelle Torres APNP [address] [place] [address] PCP - General NURSE PRACTITIONER 09/26/24 documented as of this encounter
--- OUTSIDE RECORDS SUMMARY | 2025-05-21 00:07 | XMS_ITS | Encounter Summary ---
Author Organization [facility] Facility Care Team Providers Care Wearing Apparel Presser Name Role Phone Zachary Horta MD Primary Care Prov ider Owen Farias MD Primary Care Provider + Zachary Horta MD Unavailable + Encounter Details Date Type Department Care Team (Latest Contact Info) Description 09/30/2017 Orders Only [facility] CLINCONV ProviderAbimael MD [address] [place] [address] Social History Tobacco Use Types Packs/Day Years Used Date Smoking Tobacco: Never Assessed Comments Unknown Sex and Gender Information Value Date Recorded Sex Assigned at Not on file Legal Sex Female 8:34 PM ASSEMBLER DC FI[employer]OKE Gender Identity Not on file Sexual Orientation Not on file documented as of this encounter Plan of Treatment Not on file documented as of this encounter Procedures Procedure Name Priority Date/Time Associated Diagnosis Comments CARDIOLOGY REPORT 10/05/2017 12: 00 AM CDT documented in this encounter Results * CARDIOLOGY REPORT (10/05/2017 12:00 AM CDT) Anatomical Region Laterality Modality Other Narrative 10/05/2017 12:00 AM CDT Ordered by an unspecified provider. Historical Provider [facility] [place] Final Result documented in this encounter Visit Diagnoses Not on filedocumented in this encounter Care Teams Wearing Apparel Presser Relationship Specialty Start Date End Date Zachary Horta MD PCP - General 04/17/09 11/25/21 Owen Farias MD PCP - General Family Medicine 11/26/21 Zachary Horta MD 11/26/21 documented as of this encounter
--- OUTSIDE RECORDS SUMMARY | 2025-05-21 00:07 | XMS_ITS | Encounter Summary ---
Author Organization [facility] - [facility] Address [address] [place] [address] Care Team Providers Care Mixer Dry Food Products Name Role Phone Owen Farias MD Primary Care Provider [phone] Michelle Torres Primary Care Provider [phone] Encounter Details Date Type Department Care Team (Late st Contact Info) Description 07/28/2023 MyChart Message Enc [facility] Medical Group Multispecialty Care - [facility] [address] [facility], [address] [place] [phone] Parth Olson MD [address] [place] [address] Arrival time for surgical appointment 07/29/23? Social History Tobacco Use Types Packs/Day Years Used Date Smoking Tobacco: Never Smokeless Tobacco: Never Alcohol Use Standard Drinks/Week Comments Never 0 (1 standard drink = 0.6 oz pur e alcohol) [facility] Utilities Answer Date Recorded In the past 12 months has e [employer], gas, oil, or water [employer] threatened to shut off services in your [...] Recorded Patient Health Questionnaire-2 Score 0 11/11/2022 [facility] of Occupat ional Health - Occupational Stress [...] place to sleep or slept in a usp (including now)? No 07/29/2023 Comments No Sex and Gender Information Value Date Recorded Sex Assigned at Female 08/13/2024 11:18 AM HIGH SCHOOL ADMISSIONS REPRESENTATIVE Legal Sex Female 1:57 AM HIGH SCHOOL ADMISSIONS REPRESENTATIVE Gender Identity Female 09/13/2024 7:03 AM HIGH SCHOOL ADMISSIONS REPRESENTATIVE Sexual Orientation Not on file documented as of this encounter Functional Status * Question Answer Date of Assessment Author Status Are you deaf or do you have serious difficulty hearing No 07/29/2023 5:00 PM HIGH SCHOOL ADMISSIONS REPRESENTATIVE Keri Rain RN Ac tive Are you blind or do you have serious difficulty seeing, even when wearing glasses? No 07/29/2023 5:00 PM HIGH SCHOOL ADMISSIONS REPRESENTATIVE Keri Rain RN Ac tive * Calculated C-SSRS Risk Score (Lifetime/Recent) Answer Date of Assessment Author Status No Risk Indicated 07/29/2023 12:18 PM HIGH SCHOOL ADMISSIONS REPRESENTATIVE Jessie Tay RN Active * [place] Suicide Severity Rating Scale (Screener/Recent Self-Report) Question Answer Date of Assessment Author Status 1. Wish to be (Past 1 Month) No 07/29/2023 12:18 PM HIGH SCHOOL ADMISSIONS REPRESENTATIVE Avis Tay RN Acti ve 2. Non-Specific Active Suicidal Thoughts (Past 1 Month) No 07/29/2023 12:18 PM HIGH SCHOOL ADMISSIONS REPRESENTATIVE Avis Tay RN Acti ve 6. Suicidal Behavior (Lifetime) No 07/29/2023 12:18 PM HIGH SCHOOL ADMISSIONS REPRESENTATIVE Avis Tay RN Acti ve documented as of this encounter Mental Status * Question Answer Entry Date Author Status Because of a physical, mental, or emotional condition, do you have serious difficulty concentrating, remembering, or making decisions? No 07/29/2023 5:00 PM HIGH SCHOOL ADMISSIONS REPRESENTATIVE Keri Rain RN Active documented in this encounter Progress Notes * Rosaura Winters MA - 07/28/2023 2:08 PM CST Forwarding to Alisha SCHOOL ADMISSIONS REPRESENTATIVE documented in this encounter Plan of Treatment Not on file documented as of this encounter Goals Goal Patient Goal Type Associated Problems Recent Progress Patient-Stated? Author Health - patient able to perform ADLs independently Lifestyle No Cassandra Marie, SURVEILLANCE SENSOR OPERATOR documented as of this encounter Visit Diagnoses Not on filedocumented in this encounter Additional Health Concerns Infection Onset Date Last Indicated Resolved Time COVID-19 Rule Out 07/11/2024 07/11/2024 07/11/2024 10:45 AM HIGH SCHOOL ADMISSIONS REPRESENTATIVE documented as of this encounter Care Teams Mixer Dry Food Products Relationship Specialty Start Date End Date Owen Farias MD [facility] [place] [address] PCP - General FAMILY PRACTICE 11/08/21 09/25/24 Michelle Torres APNP [address] [place] [address] PCP - General NURSE PRACTITIONER 09/26/24 documented as of this encounter
--- OUTSIDE RECORDS SUMMARY | 2025-05-21 00:07 | XMS_ITS | Encounter Summary ---
Author Organization [facility] - [facility] Address [address] [place] [address] Care Team Providers Care Motion Picture Director Name Role Phone Owen Farias MD Primary Care Provider [phone] Michelle Torres Primary Care Provider [phone] Encounter Details Date Type Department Care Team (Late st Contact Info) Description 09/17/2023 Live[employer] Message Enc [facility] Medical Group Multispecialty Care - [facility] [address] [facility], [address] [place] [address] [facility] Provider referral Social History Tobacco Use Types Packs/Day Years Used Date Smoking Tobacco: Never Smokeless Tobacco: Never Alcohol Use Standard Drinks/Week Comments Never 0 (1 standard drink = 0.6 oz pur e alcohol) [facility] Utilities Answer Date Recorded In the past 12 months has [employer], gas, oil, or water [employer] threatened to shut off services in your [...] Recorded Patient Health Questionnaire-2 Score 0 11/11/2022 [facility] of Occupat ional Health - Occupational [...] place to sleep or slept in a detention (including now)? No 07/29/2023 Comments No Sex and Gender Information Value Date Recorded Sex Assigned at Female 08/13/2024 11:18 AM RISK ENGINEER Legal Sex Female 1:57 AM RISK ENGINEER Gender Identity Female 09/13/2024 7:03 AM RISK ENGINEER Sexual Orientation Not on file documented as [...] perform ADLs independently Lifestyle No Cassandra Marie, TRAIN OPERATIONS MANAGER documented as of this encounter Visit Diagnoses Not on filedocumented in this encounter Additional Health Concerns Infection Onset Date Last Indicated Resolved Time COVID-19 Rule Out 07/11/2024 07/11/2024 07/11/2024 10:45 AM RISK ENGINEER documented as of this encounter Care Teams Motion Picture Director Relationship Specialty Start Date End Date Owen Farias MD [address] [place] [address] PCP - General FAMILY PRACTICE 11/08/21 09/25/24 Michelle Torres APNP [address] [place] [address] PCP - General NURSE PRACTITIONER 09/26/24 documented as of this encounter
--- OUTSIDE RECORDS SUMMARY | 2025-05-21 00:07 | XMS_ITS | Clinical Summary ---
Author Organization [facility] [address] [place] [address] Care Team Providers Care Licensing Specialist Name Role Phone Owen Farias MD Primary Care Provider + Zachary Horta MD Unavailable + Allergies Active Allergy Reactions Criticality Noted Date Comments Codeine Vomiting Low Medications cetirizine (ZyrTEC) 10 mg tablet Take 10 mg by mouth daily Active coenzyme Q10 100 mg capsule Take 100 mg by mouth daily Active Active Problems Problem Noted Date Diagnosed Date Dizziness and giddiness 12/10/2021 Medical History Medical History Date Comments Allergic rhinitis Stroke (HCC) Ear problems Dizziness Tinnitus Family History Medical History Relation Name Comments Stroke Father Meniere's disease Maternal Grandmother Relation Name Status Comments Father Maternal Grandmother Social History Tobacco Use Types Packs/Day Years Used Date Smoking Tobacco: Never Smokeless Tobacco: Never AUDIT-C Answer Date Recorded Q1: How often do you have a drink containing alcohol? Never 12/09/2021 Q2: How many drinks containi ng alcohol do you have on a typical day when you are drinking? Patient does not drink Q3: How often do you have si x or more drinks on one occasion? Never 12/09/2021 Comments Unknown Sex and Gender Information Value Date Recorded Sex Assigned at Not on file Legal Sex Female 8:34 PM AXLE POLISHER Gender Identity Not on file Sexual Orientation Not on file Obstetrics History Last Filed Vital Signs Vital Sign Reading Time Taken Comments Blood Pressure 128/76 10/13/2017 10:30 AM CDT Pulse 77 10/13/2017 10:30 AM CDT Temperature - - Respiratory Rate 17 12/09/2021 9:22 AM CDT Oxygen Saturation 100% 10/13/2017 10:30 AM CDT Inhaled Oxygen Concentration - - Weight 83.9 kg (185 lb) 12/09/2021 9:22 AM CDT Height 170.2 cm (5' 7) 12/09/2021 9:22 AM CDT Body Mass Index 28.98 12/09/2021 9:22 AM CDT Plan of Treatment Not on file Insurance [employer] [place] Care Teams Licensing Specialist Relationship Specialty Start Date End Date Owen Farias MD PCP - General Family Medicine 11/26/21 Zachary Horta MD 11/26/21
--- OUTSIDE RECORDS SUMMARY | 2025-05-21 00:07 | XMS_ITS | Encounter Summary ---
Author Organization [facility] Facility Care Team Providers Care Applications Coordinator Name Role Phone Zachary Horta MD Primary Care Prov ider Owen Farias MD Primary Care Provider + Zachary Horta MD Unavailable + Encounter Details Date Type Department Care Team (Latest Contact Info) Description 10/05/2017 Orders Only [facility] CLINCONV ProviderAbimael MD [address] [place] [address] Social History Tobacco Use Types Packs/Day Years Used Date Smoking Tobacco: Never Assessed Comments Unknown Sex and Gender Information Value Date Recorded Sex Assigned at Not on file Legal Sex Female 8:34 PM RN FACULTY Gender Identity Not on file Sexual Orientation Not on file documented as of this encounter Plan of Treatment Not on file documented as of this encounter Procedures Procedure Name Priority Date/Time Associated Diagnosis Comments CARDIOLOGY REPORT 10/13/2017 12: 00 AM CDT documented in this encounter Results * CARDIOLOGY REPORT (10/13/2017 12:00 AM CDT) Anatomical Region Laterality Modality Other Narrative 10/13/2017 12:00 AM CDT Ordered by an unspecified provider. Historical Provider [facility] [place] Final Result documented in this encounter Visit Diagnoses Not on filedocumented in this encounter Care Teams Applications Coordinator Relationship Specialty Start Date End Date Zachary Horta MD PCP - General 04/17/09 11/25/21 Owen Farias MD PCP - General Family Medicine 11/26/21 Zachary Horta MD 11/26/21 documented as of this encounter
--- OUTSIDE RECORDS SUMMARY | 2025-05-21 00:07 | XMS_ITS | Encounter Summary ---
Author Organization [facility] Facility Care Team Providers Care Electrical Test Engineer Name Role Phone Zachary Horta MD Primary Care Prov ider Owen Farias MD Primary Care Provider + Zachary Horta MD Unavailable + Encounter Details Date Type Department Care Team (Latest Contact Info) Description 09/01/2017 Orders Only [facility] CLINCONV ProviderAbimael MD [address] [place] [address] Social History Tobacco Use Types Packs/Day Years Used Date Smoking Tobacco: Never Assessed Comments Unknown Sex and Gender Information Value Date Recorded Sex Assigned at Not on file Legal Sex Female 8:34 PM HEATING UNIT MECHANIC Gender Identity Not on file Sexual Orientation Not on file documented as of this encounter Plan of Treatment Not on file documented as of this encounter Procedures Procedure Name Priority Date/Time Associated Diagnosis Comments SCAN - LABS 09/01/2017 12:00 AM HEATING UNIT MECHANIC CARDIOLOGY REPORT 09/01/2017 12: 00 AM HEATING UNIT MECHANIC documented in this encounter Results * SCAN - LABS (09/01/2017 12:00 AM HEATING UNIT MECHANIC) Narrative 09/01/2017 12:00 AM HEATING UNIT MECHANIC Ordered by an unspecified provider. Historical Provider Final Res ult * CARDIOLOGY REPORT (09/01/2017 12:00 AM HEATING UNIT MECHANIC) Anatomical Region Laterality Modality Other Narrative 09/01/2017 12:00 AM HEATING UNIT MECHANIC Ordered by an unspecified provider. us Historical Provider [facility] [place] Final Result documented in this encounter Visit Diagnoses Not on filedocumented in this encounter Care Teams Electrical Test Engineer Relationship Specialty Start Date End Date Zachary Horta MD PCP - General 04/17/09 11/25/21 Owen Farias MD PCP - General Family Medicine 11/26/21 Zachary Horta MD 11/26/21 documented as of this encounter
--- OUTSIDE RECORDS SUMMARY | 2025-05-21 00:07 | XMS_ITS | Encounter Summary ---
Author Organization [facility] Address [address] [place] [address] Care Team Providers Care Transport Aircrewman Name Role Phone Michelle Torres Primary Care Provider [phone] Encounter Details Date Type Department Care Team (Late st Contact Info) Description 10/21/2024 [employer] Message Enc [facility] Medical Group Family and Sports Medicine - [place] [address] [place] [address] Michelle Torres APNP [address] [place] [address] Question regarding smoking and lung nodule Social History Tobacco Use Types Packs/Day Years Used Date Smoking Tobacco: Never Smokeless Tobacco: Never Comments:na Alcohol Use Standard Drinks/Week Comments Never 0 (1 standard drink = 0.6 oz pur e alcohol) [facility] Utilities Answer Date Recorded In the past 12 months has [employer], gas, oil, or water [employer] threatened to shut off services in your [...] Recorded Patient Health Questionnaire-2 Score 0 09/26/2024 [facility] of Occupat ional Health - Occupational Stress [...] place to sleep or slept in a longterm (including now)? No 07/29/2023 Comments No Sex and Gender Information Value Date Recorded Sex Assigned at Female 08/13/2024 11:18 AM INSTRUCTOR DANCING Legal Sex Female 1:57 AM INSTRUCTOR DANCING Gender Identity Female 09/13/2024 7:03 AM INSTRUCTOR DANCING Sexual Orientation Not on file documented as [...] perform ADLs independently Lifestyle No Cassandra Marie, NEWSPAPER OR PERIODICAL EDITOR documented as of this encounter Visit Diagnoses Not on filedocumented in this encounter Additional Health Concerns Assessment Noted Time PHQ-9 Depression Total Score: 2 09/27/19 25 4:19 PM INSTRUCTOR DANCING documented as of this encounter Care Teams Transport Aircrewman Relationship Specialty Start Date End Date Michelle Torres APNP [address] [place] [address] PCP - General NURSE PRACTITIONER 09/26/24 documented as of this encounter
[2025-05-21 00:26] VITALS: BP 144/88; PULSE 76; RESP 14; TEMP 36.4; O2SAT 100
[2025-05-21 00:30] LABS: Hematocrit 37.0 % (37.0-47.0); Hemoglobin 12.1 g/dL (12.0-15.0); Immature Granulocyte Percent A 0.2 % (0-0.5); Lymphocytes Absolute Auto 1.88 K/mm3 (0.9-3.2); Mean Corpuscular HGB Conc 32.7 g/dl (32-36); Mean Corpuscular Hemoglobin 28.2 pg (26-34); Mean Corpuscular Volume 86.2 fl (80-100); Nucleated Red Blood Cells Absolute Auto 0.000 K/mm3 (0.0-0.012); Nucleated Red Blood Cells Perc 0.0 % (0.0-0.2); Platelet Count Result 234 k/mm3 (150-375); Red Blood Count 4.29 M/mm3 (4.2-5.4); White Blood Count 8.3 K/mm3 (4.5-10.0)
[2025-05-21 00:39] LABS: BEDSIDEPREGUCG Negative (Negative)
[2025-05-21 00:40] LABS: Alanine Aminotransferase 46 U/L (6-35); Albumin Level 4.6 g/dL (3.5-5.1); Alkaline Phosphatase 59 U/L (38-126); Anion Gap 9 mmol/L (4-12); Aspartate Amino Transferase 81 U/L (14-36); Bilirubin,Total 0.5 mg/dL (0.2-1.3); Blood Urea Nitrogen 23 mg/dL (7-17); Calcium 9.8 mg/dL (8.4-10.2); Carbon Dioxide 28 mmol/L (22-30); Chloride 101 mmol/L (98-107); Estimated CRCL calculation 73 ml/min; Estimated Glomerular Filt Rate > 60; Glucose 118 mg/dL (65-110); Lipase 130 U/L (23-300); Potassium 3.0 mmol/L (3.4-5.0); Sodium 138 mmol/L (137-145); Total Protein 7.7 g/dL (6.3-8.2)
--- NOTE | 2025-05-21 00:40 | ED_ITS ---
HPI - Abdominal Pain General Chief Complaint: Abdominal Pain Stated Complaint: epigastric pain, back pain, nausea Time Seen by Provider: 05/21/25 00:19 Source: patient Mode of arrival: ambulatory Limitations: no limitations History of Present Illness HPI narrative: This is a 49-year-old female with no significant past medical history presents the ED for epigastric abdominal pain with nausea. Patient states that about 2 hours ago, she had sudden onset of this pain. She had lasagna this evening which is not unusual for her. She is on tirzepatide 40 units which has been steadily increased since October when she was started on it. She has never had this pain before. Does have a history of IBS but this does not feel like that pain. And she has not tried eating or drinking since onset of symptoms. Denies fevers, chills, chest pain, shortness of breath, dysuria, hematuria, constipation, diarrhea. Related Data Allergies Allergy/AdvReac Type Severity Reaction Status Date / Time codeine AdvReac Mild Vomiting Verified 04/28/23 17:13 Review of Systems 2 Review of Systems: Gen.: Denies fevers or chills Eyes: Denies eye pain or visual change ENT: Denies congestion Respiratory: Denies shortness of breath or cough CV: Denies chest pain or palpitations GI: As per HPI denies burning, urgency, frequency or hematuria Musculoskeletal: Denies back pain or muscle pain Neuro: Denies numbness, tingling, weakness or focal weakness Skin: Denies rash Except as documented, all other systems reviewed and negative PMFSH Past Medical History Medical History Healthy female adult Surgical History Surgical History No history of previous surgery Social History Social History Smoking status: Never smoker Exam 2 Narrative: APPEARANCE: No acute distress, nontoxic, resting in bed EYES: EOMI HEENT: Normocephalic, atraumatic, OMM RESPIRATORY: No respiratory distress Clear to auscultation bilaterally with no rhonchi wheezing or rales. CARDIOVASCULAR: Regular rate and rhythm without murmurs rubs or gallops. ABDOMINAL: Soft, epigastric and bilateral upper quadrant tenderness to palpation, no rebound or guarding MUSCULOSKELETAL: Moves all extremities. No clubbing, cyanosis or edema. NEURO: Awake and alert. Following commands, speech normal, no focal deficits SKIN:: Warm, dry. No rashes lesions or abrasions PSYCHIATRIC: Normal affect/mood, Course Vital Signs Vital signs: Vital Signs Temperature 97.6 F 05/21/25 00:26 Pulse Rate 76 05/21/25 00: Respiratory Rate 14 05/21/25: Blood Pressure 144/88 H 05/21/25 00: Pulse Oximetry 100 05/21/25 00: Oxygen Delivery Room Air 05/21/25 00:26 Temperature 97.6 F 05/21/25 00: Pulse Rate 76 05/21/25 00: Respiratory Rate 14 05/21/25 00: Blood Pressure 144/88 H 05/21/25 00: Pulse Oximetry 100 05/21/25 00: Oxygen Delivery Room Air 05/21/25 00: MDM - Abdominal Pain MDM Narrative Medical decision making narrative: 49-year-old female presenting for abdominal pain, nausea. On initial evaluation, patient was in mild distress, afebrile, hemodynamically stable. She had epigastric tenderness to palpation without rebound or guarding. CBC was without significant abnormalities. Mildly hypokalemic. Lipase within normal limits. AST and ALT mildly elevated. UA clear. Given that she is on tirzepatide, suspect the patient has gastroparesis. She was given Reglan and morphine. CT abdomen/pelvis showed no acute process. On re-evaluation, patient did have near resolution of her symptoms. She will be given a prescription for Reglan and Zofran if she is unable tolerate Reglan. She was advised follow up with the prescribing provider next week to go potential changes in her dosage. Patient was agreeable to this plan. Given strict return precautions. Differential Diagnosis Differential diagnosis: Likely abdominal pain, constipation, gastroenteritis, pancreatitis, small bowel obstruction and other (cholecystitis, gastroparesis, PUD) Medical Records Attestation: I reviewed the patient's medical records. Lab Data Attestation: I reviewed the patient's lab results. 05/21/25 00:23 05/21/25:23 Labs: Lab Results 05/21/25 05/21/25 Range/Units 00: 00:36 WBC 8.3 (4.5-10.0) K/mm3 RBC 4.29 (4.2-5.4) M/mm3 Hgb 12.1 (12.0-15.0) g/dL Hct 37.0 (37.0-47.0) % MCV 86.2 (80-100) fl MCH 28.2 (26-34) pg MCHC 32.7 (32-36) g/dl RDW 14.5 (11.5-14.5) % Plt Count 234 (150-375) k/mm3 MPV 9.6 (7.4-10.4) fl Immature Gran % (Auto) 0.2 (0-0.5) % Neut % (Auto) 69.9 (45.5-73.1) % Lymph % (Auto) 22.7 (18.3-44.2) % [place] % (Auto) 5.6 (2.6-8.5) % Eos % (Auto) 1.4 (0-4.4) % Baso % (Auto) 0.2 (0.2-1.2) % Lymph # (Auto) 1.88 (0.9-3.2) K/mm3 [place] # (Auto) 0.5 (0.1-0.6) K/mm3 Eos # (Auto) 0.1 (0-0.3) K/mm3 Baso # (Auto) 0.0 (0.0-0.1) K/mm3 Abs Immat Gran (auto) 0.02 (0.00-0.031) K/mm3 Absolute Neuts (auto) 5.8 (1.3-6.7) K/mm3 Absolute Nucleated RBC 0.000 (0.0-0.012) K/mm3 Nucleated RBC % 0.0 (0.0-0.2) % Sodium 138 (137-145) mmol/L Potassium 3.0 L (3.4-5.0) mmol/L Chloride 101 (98-107) mmol/L Carbon Dioxide 28 (22-30) mmol/L Anion Gap 9 (4-12) mmol/L BUN 23 H (7-17) mg/dL Creatinine 0.85 (0.7-1.0) mg/dL Estim Creat Clear Calc 73 ml/min Estimated GFR > 60 (59 - ) Glucose 118 H (65-110) mg/dL Calcium 9.8 (8.4-10.2) mg/dL Total Bilirubin 0.5 (0.2-1.3) mg/dL AST 81 H (14-36) U/L ALT 46 H (6-35) U/L Alkaline Phosphatase 59 (38-126) U/L Total Protein 7.7 (6.3-8.2) g/dL Albumin 4.6 (3.5-5.1) g/dL Lipase 130 (23-300) U/L Urine Color Yellow (Yellow) Urine Appearance Clear (Clear) Urine pH 7.5 (5.0-9.0) Ur Specific [place] 1.022 (1.001-1.035) Urine Protein Trace (Negative) mg/dL Urine Glucose (UA) Negative (Negative) mg/dL Urine Ketones Trace H (Negative) mg/dL Ur Blood (Man) Negative (Negative) Urine Nitrate Negative (Negative) Urine Bilirubin Negative (Negative) Urine Urobilinogen 1.0 (<2.0) mg/dL Add Ur Microanalysis Reviewed Leukocyte Esterase Rfl 1+ H (Negative) AMY/UL Urine RBC 0-2 (0-2) /hpf Urine WBC 0-5 (0-3) /hpf Ur Squamous Epith Cells Occasional (Few) /hpf Urine Bacteria None seen /hpf Urine Casts 0-2 POC Urine HCG, Qual Negative (Negative) Imaging Data Attestation: I personally reviewed and interpreted this imaging study as follows: My impression: CT abdomen/pelvis: Potentially mildly dilated stomach but no other abnormalities noted Radiologist's impression: CT abdomen/pelvis: No acute intra-abdominal abnormality. No biliary dilatation or calcified gallstone. No evidence of overt pancreatitis. No bowel obstruction or inflammation. Normal appendix. No hydronephrosis or renal calculus. Discharge Plan Discharge Clinical Impression: Gastroparesis Patient Disposition: Home Condition: Stable Instructions: Antibiotic Form, Gastroparesis (ED) Additional Instructions: Take Reglan as prescribed. Take her Zofran if you are unable to tolerate the Reglan. Follow-up with your prescribing provider in the next week for re- evaluation and to discuss Tirzepatide dose. Return to the ED for any new or worsening symptoms. Patient Language: Georgian Prescriptions: New metoclopramide HCl [Reglan] 10 mg tablet 10 mg PO Q6H PRN (Reason: nausea and vomiting) Qty: 30 0RF ondansetron 4 mg tablet,disintegrating 4 mg PO Q8H PRN (Reason: nausea and vomiting) Qty: 14 0RF No Action naproxen 375 mg tablet 375 mg PO BID Qty: 14 0RF Follow-up/Referrals: PHYSICIAN NOT ON STAFF,NONSTAFF [Primary Care Provider]
[2025-05-21 00:44] LABS: Add Urine Microscopic? YES; Appearance Urine Clear (Clear); Glucose Urine UA Negative (Negative); Leukocyte Esterase Ur 1+ LEU/UL (Negative); Need Manual Microscopic Reviewed; Nitrate Urine Negative (Negative); Non Pathogenic Casts 0-2; Specific Grav Ur 1.022 (1.001-1.035)
[2025-05-21] MEDS: MORPHINE SULFATE (*CRX) 4 MG/ML INJ IV PUSH (01:05)
[2025-05-21] MEDS: SODIUM CHLORIDE 0.9% IV 1,000 ML 999 ML IV CONT (01:06)
[2025-05-21] MEDS: METOCLOPRAMIDE HCL INJ 10 MG/2 ML VIAL IV PUSH (01:06)
[2025-05-21] MEDS: POTASSIUM CHLORIDE 20 MEQ ER TABLET 40 MEQ PO (01:12)
[2025-05-21 03:04] VITALS: BP 112/70; PULSE 95; RESP 20; TEMP 36.7; O2SAT 100
== END 2025-05-21 03:07 | disposition home or self-care (01) ==
PROVIDERS: Emergency Provider Student in an Organized Health Care Education/Training Program
DX: K31.84 Gastroparesis (principal)
CPT/HCPCS: 36415; 74177; 80053; 81001; 81025; 83690; 85025; 87086; 87147; 87186; 96361; 96374; 96375; 99284; A9270; J2270; J2765; J7030; Q9967

== ENCOUNTER 2025-06-19 17:05 | Emergency (ER) | payer OTHER, SELFPAY ==
[2025-06-19 17:11] VITALS: BP 126/80; PULSE 67; RESP 16; TEMP 36.7; O2SAT 100
--- NOTE | 2025-06-19 17:16 | ED.GENADULT ---
HPI - General Adult General Chief complaint: Ear Stated complaint: left ear pain Time Seen by Provider: 06/19/25 17:18 Source: patient, RN notes reviewed and old records reviewed Mode of arrival: ambulatory Limitations: no limitations History of Present Illness HPI narrative: 50-year-old female presents to the [facility] with left ear pain patient states that it started on Thursday, 3 days ago. patient reports at 1st it was intermittent, no decreased hearing. No drainage. Patient states that she has been using Flonase daily, allergy medication as well as Sudafed, ibuprofen and Tylenol. Onset (ago): day(s) (3) Related Data Home Medications ?Medication ?Instructions ?Recorded ?Confirmed ?Last Taken ?Type hydrochlorothiazide 12.5 mg capsule mg 06/19/25 Unknown History omeprazole 40 mg capsule,delayed mg 06/19/25 Unknown History release spironolactone 100 mg tablet mg 06/19/25 Unknown History Allergies Allergy/AdvReac Type Severity Reaction Status Date / Time codeine AdvReac Mild Vomiting Verified 06/19/25 17:16 Review of Systems Review of Systems: All systems reviewed & are unremarkable except as noted in HPI and below Constitutional: Constitutional: Reports no additional constitutional complaints ENT: Reports as per HPI and Reports otalgia Cardiovascular: Cardiovascular: Reports no additional cardiovascular complaints, Denies chest pain and Denies dyspnea Respiratory: Respiratory: Reports no additional respiratory complaints, Denies chest congestion, Denies cough and Denies dyspnea Musculoskeletal: Musculoskeletal: Reports no additional musculoskeletal complaints Integumentary/Breasts: Skin/Breast: Reports system reviewed and no additional complaints, except as docu PMFSH Past Medical History Medical History Healthy female adult Surgical History Surgical History No history of previous surgery Social History Social History Smoking status: Never smoker Comments At the time of my signature, I reviewed and agree with the nursing past medical, surgical, social, and family history. There is no relevant family history pertinent to the patient complaint. Exam Const: General: cooperative, healthy appearing, comfortable, no acute distress, well developed, alert and well nourished Nutritional Appearance: well nourished Orientation/consciousness: patient oriented x3 Limitations: no limitations HENMT: Head: normal to inspection Ears: hearing grossly normal bilaterally, external ears normal, EAC's normal, mastoids normal, no periauricular adenopathy and TM abnormal bulging on the left and wth effusion serous on the left Face and sinus: normal facial exam and face symmetric Mouth: Yes Normal oral and palatal mucosa present, Yes lip normal, Yes tongue normal and Yes moist mucous membranes Throat: posterior oropharynx normal, uvula midline and no uvular edema Eyes: General: appearance normal, both eyes and all related structures Alignment and Position: alignment normal Neck: Neck: normal visual inspection, full ROM, no lymphadenopathy and no meningeal signs Chest: Chest palpation & inspection: normal inspection of the chest Resp: Effort & Inspection: normal respiratory effort and able to speak in complete sentences Auscultation: clear to auscultation bilaterally, no crackles, no rales, no rhonchi and no wheezes Cardio: Rate: regular rate Skin: General skin exam: normal color and no rashes or lesions noted Neuro: General: patient oriented x3, gait normal, moves all extremities and no meningeal signs Cognition (Neuro): normal cognition Speech: normal speech Gait exam (Neuro): Normal gait present Extrem: General: normal to inspection, full ROM, capillary refill normal and normal gait Psych: Appearance: grossly normal and well kempt Mental Status: mental status grossly normal Speech and movement: Normal speech and movement present and Clear speech present Affect: normal affect Attitude: cooperative Course Course Level of Care: Express Care Visit Vital Signs Vital signs: Vital Signs Temperature 98.1 F 06/19/25 17:11 Pulse Rate 67 06/19/25 17:11 Respiratory Rate 16 06/19/25 17:11 Blood Pressure 126/80 06/19/25 17:11 Pulse Oximetry 100 06/19/25 17:11 Oxygen Delivery Room Air 06/19/25 17:11 Temperature 98.1 F 06/19/25 17:11 Pulse Rate 67 06/19/25 17:11 Respiratory Rate 16 06/19/25 17:11 Blood Pressure 126/80 06/19/25 17:11 Pulse Oximetry 100 06/19/25 17:11 Oxygen Delivery Room Air 06/19/25 17:11 Reviewed Medical Decision Making MDM Narrative Medical decision making narrative: patient with increasing pain to the left ear. Patient sitting comfortably in exam room. Patient is nontoxic, vitals are stable. clear fluid noted behind left TM. Patient is appropriate for outpatient treatment with close follow-up Discharge instructions reviewed with patient, as well as provided in writing per nursing staff. The instructions also include specific and strict return/GO TO THE ER as well as f/u information. All questions have been answered, and the patient deny any further questions with discharge and discharge plan. Some parts of this dictation were generated by voice recognition software and may contain typographical and/or grammatical inaccuracies. Differential Diagnosis Differential Diagnosis: Serous otitis, otitis externa, otitis media Medical Records Medical records reviewed: Yes I reviewed the external patient's medical records. Vital Signs Vital Signs: Vital Signs Temperature 98.1 F 06/19/25 17:11 Pulse Rate 67 06/19/25 17:11 Respiratory Rate 16 06/19/25 17:11 Blood Pressure 126/80 06/19/25 17:11 Pulse Oximetry 100 06/19/25 17:11 Oxygen Delivery Room Air 06/19/25 17:11 Temperature 98.1 F 06/19/25 17:11 Pulse Rate 67 06/19/25 17:11 Respiratory Rate 16 06/19/25 17:11 Blood Pressure 126/80 06/19/25 17:11 Pulse Oximetry 100 06/19/25 17:11 Oxygen Delivery Room Air 06/19/25 17:11 Reviewed Lab Data Lab results reviewed: Yes I reviewed the patient's lab results. Labs: Reviewed Critical Care Time Critical Care Time Critical Care Time: No Discharge Plan Discharge Clinical Impression: Acute serous otitis media of left ear Qualifiers: Recurrence: not specified as recurrent Qualified Code(s): H65.02 - Acute serous otitis media, left ear Patient Disposition: Home Condition: Stable Instructions: Antibiotic Form, Fluid In The Ear (Serous Otitis Media) (ED) Additional Instructions: It is very important to treat your symptoms. Drink plenty of water, Gatorade, Pedialyte, ice pops or Jell-O. -Alternate Tylenol and Motrin per package directions for fever or pain. You can alternate every 4 hours -Antihistamine medication such as Zyrtec/Claritin/Neris during the day can help improve symptoms. -doing daily nasal irrigations can help relieve pressure your sinuses. Things like a Neti pot -Use Flonase twice a day for 5 days then daily to help reduce the inflammation and dry up your sinuses. -You can also use Mucinex. Be sure to drink plenty of water with this medication at least 8 ounces with every dose and it is important to drink 8 to 10 glasses of water per day. Water is a natural decongestant -Eat and drink things that are easy to swallow, like tea or soup, or popsicles. -Oral rinses such as: Salt water gargles and/or may use topical anesthetic (eg. Chloraseptic spray) or lozenges to relieve dryness or throat pain). -Frequent hand washing or hand lap winding machine operator is one of the best ways to prevent spread of infection. -Using a vaporizer or humidifier at night will also help thin secretions and help with coughing up phlegm. -Follow up with primary care provider in 7-10 days if condition is not improving - For new or worsening symptoms go directly to the nearest ER Patient Language: [place]ib[place]ian Prescriptions: New methylprednisolone [Medrol (Zan)] 4 mg tablets,dose pack See Rx Instructions PO .COMPLEX Qty: 21 0RF Rx Instructions: orally per package directions No Action spironolactone 100 mg tablet omeprazole 40 mg capsule,delayed release(DR/EC) hydrochlorothiazide 12.5 mg capsule metoclopramide HCl [Reglan] 10 mg tablet 10 mg PO Q6H PRN (Reason: nausea and vomiting) Qty: 30 0RF ondansetron 4 mg tablet,disintegrating 4 mg PO Q8H PRN (Reason: nausea and vomiting) Qty: 14 0RF Follow-up/Referrals: Brian,Michelle Bergman NP [Primary Care Provider, Unknown] Time of Disposition: 17:25
== END 2025-06-19 17:29 | disposition home or self-care (01) ==
PROVIDERS: Emergency Provider Nurse Practitioner; PCP Nurse Practitioner
DX: H65.02 Acute serous otitis media, left ear (principal)
CPT/HCPCS: 99213; G0463